=== PATIENT | female | born 1965 | race Hispanic/Latino ===

== ENCOUNTER 2022-11-12 10:30 | Outpatient (CLI) | payer BC | END 2022-11-12 10:31 | disposition home or self-care (01) | LOC: CSHCT 10:30 | PROVIDERS: ATTEND Urology | DX: N20.0 Calculus of kidney (principal); Z98.890 Other specified postprocedural states; K57.30 Diverticulosis of large intestine without perforation or abscess without bleeding | CPT/HCPCS: 74176 ==

== ENCOUNTER 2023-09-03 14:40 | Outpatient (CLI) | payer BC | END 2023-09-03 14:41 | disposition home or self-care (01) | LOC: CSHMAMMO 14:40 | PROVIDERS: ATTEND Family Medicine | DX: Z12.31 Encounter for screening mammogram for malignant neoplasm of breast (principal) | CPT/HCPCS: 77063; 77067 ==

== ENCOUNTER 2024-01-06 09:09 | Outpatient (CLI) | payer BC | END 2024-01-06 09:10 | disposition home or self-care (01) | LOC: CSHCT 09:09 | PROVIDERS: ATTEND Internal Medicine Rheumatology | DX: I77.6 Arteritis, unspecified (principal); K76.9 Liver disease, unspecified; K76.0 Fatty (change of) liver, not elsewhere classified; K57.30 Diverticulosis of large intestine without perforation or abscess without bleeding; N20.0 Calculus of kidney | CPT/HCPCS: 74175 ==

== ENCOUNTER 2024-03-08 08:38 | Outpatient (CLI) | payer BC | END 2024-03-08 08:39 | disposition home or self-care (01) | LOC: CSHCT 08:38 | PROVIDERS: ATTEND Family Medicine | DX: K76.0 Fatty (change of) liver, not elsewhere classified (principal); K76.9 Liver disease, unspecified | CPT/HCPCS: 74170 ==

== ENCOUNTER 2025-05-16 09:33 | Outpatient (CLI) | payer BC | END 2025-05-16 09:34 | disposition home or self-care (01) | LOC: CSHMRI 09:33 | PROVIDERS: ATTEND Psychiatry & Neurology Neurology | DX: G11.9 Hereditary ataxia, unspecified (principal); G31.84 Mild cognitive impairment of uncertain or unknown etiology; G43.111 Migraine with aura, intractable, with status migrainosus; R25.1 Tremor, unspecified; H53.2 Diplopia; H53.9 Unspecified visual disturbance; M54.81 Occipital neuralgia; G50.0 Trigeminal neuralgia; R90.82 White matter disease, unspecified; J32.3 Chronic sphenoidal sinusitis | CPT/HCPCS: 70553; 76376 ==